=== PATIENT | female | born 1965 | race Caucasian/White ===

== ENCOUNTER 2021-09-02 16:45 | Emergency (ER) | payer OTHER ==
[2021-09-02 19:51] LABS: HEMOGLOBIN 14.8 gm/dl (12.3-15.3); RED BLOOD COUNT 5.22 M/UL (4.00-5.10); WHITE BLOOD COUNT 11.1 K/UL (4.5-11.0)
[2021-09-02 20:17] LABS: BUN/CREATININE RATIO 15 (0-10)
[2021-09-02] MEDS ORDERED: PRILOSEC OTC20 MG PO (22:38)
[2021-09-02] MEDS ORDERED: CEPHALEXIN500 MG PO (22:45)
[2021-09-02] MEDS ORDERED: ZOFRAN ODT 4 MG4 MG SL (22:57)
== END 2021-09-02 23:15 | disposition home or self-care (01) ==
LOC: ER1 16:45
PROVIDERS: Emergency Medicine
DX: R10.13 Epigastric pain (principal); R10.816 Epigastric abdominal tenderness
CPT/HCPCS: 80053; 81001; 83690; 84703; 85025; 96374; 99284; J2405; Q9967

== ENCOUNTER → 2021-12-14 | Outpatient (CLI) | payer OTHER ==
[~2021-12-14] MED LIST: CEPHALEXIN500 MG PO; PRILOSEC OTC20 MG PO; ZOFRAN ODT 4 MG4 MG SL
== END ==
LOC: MAMO 14:41
DX: Z12.31 Encounter for screening mammogram for malignant neoplasm of breast (principal)
CPT/HCPCS: 77063; 77067

== ENCOUNTER 2021-12-16 16:26 | Emergency (ER) | payer OTHER | END 2021-12-16 20:29 | disposition home or self-care (01) | LOC: ER1 16:26 | DX: G43.909 Migraine, unspecified, not intractable, without status migrainosus (principal); Z87.891 Personal history of nicotine dependence | CPT/HCPCS: 96361; 96374; 96375; 99283; J1200; J1885; J2550; J2765 ==